=== PATIENT | male | born 1985 | race African-American/Black ===

== ENCOUNTER 2018-07-21 12:20 | Inpatient (IN) | payer OTHER ==
[2018-07-21 12:33] VITALS: BMI 30.9
--- NOTE | 2018-07-21 13:46 | HP ---
COWS - Scale Resting Pulse: 2= [place] 101-120 Sweatin= Chills/Flushing Restless Observation: 1= Difficult to Sit Still Pupil Size: 0= Normal to Room Light Bone or Joint Aches: 2= Severe Diffuse Aches Runny Nose/ Eye Tearin= Nasal Congestion GI Upset > 30mins: 1= Stomach Cramp Tremor Observation: 2= Slight Tremor Visible Yawning Observation: 1= 1-2x During Session Anxiety or Irritability: 1=Feels Anxious/Irritable Goose Flesh Skin: 3=Piloerection COWS Score: 15 CIWA Score - CIWA Score Nausea/Vomitin-Mild Nausea/No Vomiting Muscle Tremors: 4-Moderate,w/Arms Extend Anxiety: 4-Mod. Anxious/Guarded Agitation: 4-Moderately Restless Paroxysmal Sweats: 1-Minimal Palms Moist Orientation: 0-Oriented Tacttile Disturbances: 1-Very Mild Itch/Numbness Auditory Disturbances: 0-None Visual Disturbances: 0-None Headache: 0-None Present CIWA-Ar Total Score: 15 Admission [facility] - HPI Chief Complaint: alcohol and opioid withdrawal Allergies/Adverse Reactions: Allergies Allergy/AdvReac Type Severity Reaction Status Date / Time No Known Allergies Allergy Verified 07/21/18 13:37 History of Present Illness: 33 years old male with long history of alcohol and opiate and nicotine dependence, denies medical issue admitted feeling depressed and low energy recent months, unable to perform daily functioning, exhibited self destructive behavior by drinking and using opiate, patient denies current suicidal homocidal ideation "I have hope" Exam Limitations: No Limitations - Ebola screening Have you traveled outside of the country in the last 21 days: No Have you had contact with anyone from an Ebola affected area: No Have you been sick,other than usual withdrawal symptoms: No Do you have a fever: No - Review of Systems Constitutional: Changes in sleep, Weight Stable EENT: reports: No Symptoms Reported Respiratory: reports: No Symptoms reported Cardiac: reports: No Symptoms Reported GI: reports: Nausea, Poor Appetite, Poor Fluid Intake, Indigestion, Abdominal cramping : reports: No Symptoms Reported Musculoskeletal: reports: Back Pain, Joint Pain, Muscle Pain, Muscle Weakness, Neck Pain Integumentary: reports: Change in Color (left cubital) Neuro: reports: Tremors Endocrine: reports: No Symptoms Reported Hematology: reports: No Symptoms Reported Psychiatric: reports: Judgement Intact, Orientated x3, Anxious, Depressed Other Systems: Reviewed and Negative Patient History - Patient Medical History Hx Anemia: No Hx Asthma: No Hx Chronic Obstructive Pulmonary Disease (COPD): No Hx Cancer: No Hx Cardiac Disorders: No Hx Congestive Heart Failure: No Hx Hypertension: No Hx Hypercholesterolemia: No Hx Pacemaker: No HX Cerebrovascular Accident: No Hx Seizures: No Hx Dementia: No Hx Diabetes: No Hx Gastrointestinal Disorders: No Hx Liver Disease: No Hx Genitourinary Disorders: No Hx Sexually Transmitted Disorders: No Hx Renal Disease (ESRD): No Hx Thyroid Disease: No Hx Human Immunodeficiency Virus (HIV): No Hx Hepatitis C: No Hx Depression: Yes (ANXIETY, NO MED) Hx Suicide Attempt: No Hx Bipolar Disorder: No Hx Schizophrenia: No - Patient Surgical History Past Surgical History: No Hx Neurologic Surgery: No Hx Cataract Extraction: No Hx Cardiac Surgery: No Hx Lung Surgery: No Hx Breast Surgery: No Hx Breast Biopsy: No Hx Abdominal Surgery: No Hx Appendectomy: No Hx Cholecystectomy: No Hx Genitourinary Surgery: No Hx Section: No Hx Orthopedic Surgery: No Other Surgical History: MULTIPLE CUT ON BOTH HANDS, ABOUT 15 SUTURS ON LEFT FIFTH DISTAL FINGER Anesthesia Reaction: No - PPD History Date: 04/16/18 - Smoking Cessation Smoking history: Current every day smoker Have you smoked in the past 12 months: Yes Aproximately how many cigarettes per day: 6 Cigars Per Day: 0 Hx Chewing Tobacco Use: No Initiated information on smoking cessation: Yes 'Breaking Loose' booklet given: 07/21/18 - Substance & Tx. History Hx Alcohol Use: Yes Hx Substance Use: Yes Substance Use Type: Alcohol, Cocaine, Heroin, Opiates Hx Substance Use Treatment: Yes (03/2018 [facility] - Substances Abused Alcohol-vodka/beer Route: Oral Frequency: Daily Amount used: 2 pts./1-6 pk. Age of first use: 20 Date of Last Use: 07/21/18 Crystal meth Route: Smoking Frequency: Daily Amount used: $100 Age of first use: 28 Date of Last Use: 07/20/18 Crack Route: Smoking Frequency: Daily Amount used: $100 Age of first use: 22 Date of Last Use: 07/20/18 Family Disease History - Family Disease History Family Disease History: Other: Father (, lung cancer ), Mother (alive and well ) Admission Physical Exam [facility] - Vital Signs Vital Signs: Vital Signs - 24 hr 07/21/18 12:31 Temperature 96.5 F L Pulse Rate 105 H Respiratory 18 Rate Blood Pressure 128/78 - Physical General Appearance: Yes: Nourished, Appropriately Dressed, Mild Distress, Tremorous, Irritable, Sweating HEENTM: Yes: Hearing grossly Normal, Normocephalic, Normal Voice Respiratory: Yes: Chest Non-Tender, Lungs Clear, Normal Breath Sounds, No Respiratory Distress, No Accessory Muscle Use Neck: Yes: Supple, Trachea in good position Breast: Yes: Breasts Symetrical, No Discharge Cardiology: Yes: Regular Rhythm, S1, S2, Tachycardia Abdominal: Yes: Non Tender, Flat, Decreased BS Genitourinary: Yes: Within Normal Limits Back: Yes: Normal Inspection Musculoskeletal: Yes: full range of Motion, Gait Steady, Back pain, Joint Stiffness, Joint swelling, Muscle Pain Extremities: Yes: Normal Inspection, Normal Range of Motion, Non-Tender, Tremors , Swelling (lower legs) Neurological: Yes: Fully Oriented, Alert, Motor Strength 5/5, Normal Response, Depressed Affect Integumentary: Yes: Warm Lymphatic: Yes: Within Normal Limits - Diagnostic (1) Nicotine dependence Current Visit: Yes Status: Acute Qualifiers: Nicotine product type: cigarettes Substance use status: uncomplicated Qualified Code(s): F17.210 - Nicotine dependence, cigarettes, uncomplicated (2) Alcohol dependence with uncomplicated withdrawal Current Visit: Yes Status: Acute (3) Transgender Current Visit: No Status: Resolved Cleared for Admission [facility] - Detox or Rehab [facility] Level of Care: Medically Managed [facility] Breath Alcohol Content Breath Alcohol Content: 0 Urine Drug Screen - Control Is Test Valid: Yes - Results Drug Screen Negative: No Urine Drug Screen Results: THC-Marijuana, MARIBELL-Cocaine, AMP-Amphetamines, MET- Methamphetamine, BAR-Barbiturates
[2018-07-21] MEDS ORDERED: diazePAM 5 MG TABLET PO PRN (13:53)
[2018-07-21] MEDS ORDERED: IBUPROFEN 400 MG TABLET (FP) PO PRN (13:53)
[2018-07-21] MEDS ORDERED: LOPERAMIDE HCL 2 MG CAPSULE PO PRN (13:53)
[2018-07-21] MEDS ORDERED: MAGNESIUM HYDROX 2400MG/30ML ORAL SUSPENSION 30 ML CUP PO PRN (13:53)
[2018-07-21] MEDS ORDERED: ACETAMINOPHEN 325 MG TABLET (FP) PO PRN (13:53)
[2018-07-21] MEDS ORDERED: MAG HYDROX/AL HYDROX/SIMETH 30 ML UNIT-DOSE CUP PO PRN (13:53)
[2018-07-21] MEDS ORDERED: P-EPHED 60MG/TRIPROLIDI 2.5MG TABLET PO PRN (13:53)
[2018-07-21] MEDS ORDERED: NICOTINE POLACRILEX 4 MG GUM BUC PRN (13:53)
[2018-07-21] MEDS ORDERED: guaiFENesin/D-METHORPHAN HB 10 ML UNIT-DOSE CUPS PO PRN (13:53)
[2018-07-21] MEDS ORDERED: MENTHOL/PHENOL 1 EACH UD MM PRN (13:53)
[2018-07-21] MEDS ORDERED: MAGNESIUM CITRATE 300 ML BOTTLE PO PRN (13:53)
[2018-07-21] MEDS ORDERED: diazePAM 5 MG TABLET PO ONE (14:45)
[2018-07-21] MEDS ORDERED: METHADONE HCL 10 MG TABLET (FOR DETOX USE ONLY) PO ONE ×2 (14:45→23:00)
[2018-07-21] MEDS: NICOTINE 21 MG/24 HOURS TOPICAL PATCH TD SCH (16:36)
[2018-07-21 17:54] LABS: URINE APPEARANCE TURBID; URINE COLOR YELLOW; URINE GLUCOSE (UA) NEGATIVE (NEGATIVE); URINE KETONE 1+ (NEGATIVE); URINE LEUK ESTERASE NEGATIVE (NEGATIVE); URINE NITRITE NEGATIVE (NEGATIVE); URINE UROBILINOGEN 4.0 E.U/dl mg/dL (0.2-1.0)
[2018-07-21 17:59] LABS: URINE PROTEIN 1+ (NEGATIVE)
[2018-07-21 18:56] LABS: CALCIUM OXALATE CRYSTALS FEW /hpf (NONE SEEN); EPI CELLS RARE /HPF (FEW); URINE BACTERIA MANY /hpf (NONE SEEN); URINE MUCUS MANY
[2018-07-21] MEDS ORDERED: MELATONIN 5 MG TABLETS PO PRN (22:00)
[2018-07-21] MEDS: THIAMINE HCL 100 MG TABLET (FP) PO SCH (22:20)
[2018-07-21] MEDS: diazePAM 5 MG TABLET PO SCH (22:20)
[2018-07-22] MEDS: diazePAM 5 MG TABLET PO SCH ×3 (05:28→23:09)
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
[2018-07-22] MEDS ORDERED: METHADONE HCL 10 MG TABLET (FOR DETOX USE ONLY) PO SCH (10:00)
[2018-07-22 10:32] LABS: HEMATOCRIT 45.9 % (35.4-49); HEMOGLOBIN 15.1 GM/dL (11.7-16.9); MCH 30.5 pg (25.7-33.7); MCHC 32.8 g/dl (32.0-35.9); MEAN CELL VOLUME 92.7 fl (80-96); MEAN PLT VOLUME 9.7 fl (7.5-11.1); PLATELET COUNT 264 K/MM3 (134-434); RBC 4.95 M/mm3 (4.00-5.60); RDW 14.8 % (11.9-15.9); WHITE BLOOD COUNT 9.8 K/mm3 (4.0-10.0)
[2018-07-22] MEDS ORDERED: hydrOXYzine PAMOATE 50 MG CAPSULE (FP) PO PRN (10:36)
[2018-07-22 10:41] LABS: ALBUMIN 3.9 g/dl (3.4-5.0); ALK PHOS 61 U/L (45-117); ANION GAP 10 MMOL/L (8-16); BILIRUBIN,TOTAL 0.6 mg/dL (0.2-1); BLOOD UREA NITROGEN 10 mg/dL (7-18); CALCIUM 9.8 mg/dL (8.5-10.1); CHLORIDE 104 mmol/L (98-107); CO2 26 mmol/L (21-32); CREATININE 1.2 mg/dL (0.55-1.3); GLUCOSE,RANDOM 98 mg/dL (74-106); POTASSIUM 3.7 mmol/L (3.5-5.1); SGOT/AST 27 U/L (15-37); SGPT/ALT 21 U/L (13-61); SODIUM 140 mmol/L (136-145); TOT PROT 7.6 g/dl (6.4-8.2)
[2018-07-22] MEDS: NICOTINE 21 MG/24 HOURS TOPICAL PATCH TD SCH (10:53)
[2018-07-22] MEDS: PRENATAL VITAMINS W/ FOLIC ACID TABLET (FP) PO SCH (10:54)
--- NOTE | 2018-07-22 11:07 | EKG ---
Test Reason : Blood Pressure : / mmHG Vent. Rate : 063 BPM Atrial Rate : 063 BPM P-R Int : 156 ms QRS Dur : 088 ms QT Int : 400 ms P-R-T Axes : 012 051 044 degrees QTc Int : 409 ms NORMAL SINUS RHYTHM NORMAL ECG WHEN COMPARED WITH ECG OF 14-APR-2018 18:37, NO SIGNIFICANT CHANGE WAS FOUND Confirmed by Enrico Hamlin MD ([id number]) on 07/22/2018 11:07:04 AM Referred By: Confirmed By:Enrico Hamlin MD
--- NOTE | 2018-07-22 11:58 | PN ---
[facility] CIWA - CIWA Score Nausea/Vomitin-No Nausea/No Vomiting Muscle Tremors: 4-Moderate,w/Arms Extend Anxiety: 3 Agitation: 3 Paroxysmal Sweats: 3 Orientation: 0-Oriented Tacttile Disturbances: 0-None Auditory Disturbances: 0-None Visual Disturbances: 0-None Headache: 0-None Present CIWA-Ar Total Score: 13 BHS COWS - Scale Resting Pulse: 0= [place] 80 or Below Sweatin=Flushed/Facial Moisture Restless Observation: 1= Difficult to Sit Still Pupil Size: 0= Normal to Room Light Bone or Joint Aches: 2= Severe Diffuse Aches Runny Nose/ Eye Tearin= Nasal Congestion GI Upset > 30mins: 1= Stomach Cramp Tremor Observation of Outstretched Hands: 2= Slight Tremor Visible Yawning Observation: 0= None Anxiety or Irritability: 2=Irritable/Anxious Goose Flesh Skin: 0=Smooth Skin COWS Score: 11 S Progress Note (SOAP) Subjective: body aches sweats chills agitation interrupted sleep Objective: 07/22/18 11:57 Vital Signs Temperature 97.5 F L 07/22/18 09:15 Pulse Rate 73 07/22/18 09:15 Respiratory Rate 18 07/22/18 09:15 Blood Pressure 124/99 07/22/18 09:15 O2 Sat by Pulse Oximetry (%) Laboratory Tests 07/21/18 07/21/18 07/22/18 06:00 15:25 06:00 WBC 9.8 RBC 4.95 Hgb 15.1 Hct 45.9 D MCV 92.7 MCH 30.5 MCHC 32.8 RDW 14.8 Plt Count 264 D MPV 9.7 Sodium Potassium Chloride Carbon Dioxide Anion Gap BUN Creatinine Creat Clearance w eGFR Random Glucose Calcium Total Bilirubin AST ALT Alkaline Phosphatase Total Protein Albumin Urine Color Yellow Urine Appearance Turbid Urine pH 5.0 Ur Specific [place] 1.035 Urine Protein 1+ H Urine Glucose (UA) Negative Urine Ketones 1+ H Urine Blood Negative Urine Nitrite Negative Urine Bilirubin 2.0 Urine Urobilinogen 4.0 e.u/dl Ur Leukocyte Esterase Negative Urine WBC (Auto) 17 Urine RBC (Auto) 4 Ur Epithelial Cells Rare Calcium Oxalate Crystal Few Urine Bacteria Many Urine Mucus Many RPR Titer HIV 1&2 Antibody Screen Negative HIV P24 Antigen Negative 07/22/18 07/22/18 06:00 06:00 WBC RBC Hgb Hct MCV MCH MCHC RDW Plt Count MPV Sodium 140 Potassium 3.7 Chloride 104 Carbon Dioxide 26 Anion Gap 10 BUN 10 Creatinine 1.2 Creat Clearance w eGFR > 60 Random Glucose 98 Calcium 9.8 Total Bilirubin 0.6 AST 27 ALT 21 Alkaline Phosphatase 61 Total Protein 7.6 Albumin 3.9 Urine Color Urine Appearance Urine pH Ur Specific [place] Urine Protein Urine Glucose (UA) Urine Ketones Urine Blood Urine Nitrite Urine Bilirubin Urine Urobilinogen Ur Leukocyte Esterase Urine WBC (Auto) Urine RBC (Auto) Ur Epithelial Cells Calcium Oxalate Crystal Urine Bacteria Urine Mucus RPR Titer Nonreactive HIV 1&2 Antibody Screen HIV P24 Antigen aaox3 ambulating no acute distress Assessment: 07/22/18 11:57 withdrawal sx Plan: continue detox increase fluids
[2018-07-22] MEDS: THIAMINE HCL 100 MG TABLET (FP) PO SCH (23:09)
[2018-07-23] MEDS ORDERED: METHADONE HCL 5 MG TABLET (FOR DETOX USE ONLY) PO SCH (10:00)
[2018-07-23] MEDS: PRENATAL VITAMINS W/ FOLIC ACID TABLET (FP) PO SCH (10:21)
[2018-07-23] MEDS: diazePAM 5 MG TABLET PO SCH ×2 (10:21→22:34)
[2018-07-23] MEDS: NICOTINE 21 MG/24 HOURS TOPICAL PATCH TD SCH (10:21)
--- NOTE | 2018-07-23 11:29 | PN ---
[facility] CIWA - CIWA Score Nausea/Vomitin-No Nausea/No Vomiting Muscle Tremors: 3 Anxiety: 3 Agitation: 3 Paroxysmal Sweats: 2 Orientation: 0-Oriented Tacttile Disturbances: 0-None Auditory Disturbances: 0-None Visual Disturbances: 0-None Headache: 0-None Present CIWA-Ar Total Score: 11 BHS COWS - Scale Resting Pulse: 0= [place] 80 or Below Sweatin= Chills/Flushing Restless Observation: 0= Sits Still Pupil Size: 0= Normal to Room Light Bone or Joint Aches: 2= Severe Diffuse Aches Runny Nose/ Eye Tearin= Nasal Congestion GI Upset > 30mins: 0= None Tremor Observation of Outstretched Hands: 2= Slight Tremor Visible Yawning Observation: 2= >3x During Session Anxiety or Irritability: 2=Irritable/Anxious Goose Flesh Skin: 0=Smooth Skin COWS Score: 10 S Progress Note (SOAP) Subjective: sweats interrupted sleep body aches tired Objective: 07/23/18 11:26 Vital Signs Temperature 97.9 F 07/23/18 09:13 Pulse Rate 80 07/23/18 09:13 Respiratory Rate 16 07/23/18 09:13 Blood Pressure 118/61 07/23/18 09:13 O2 Sat by Pulse Oximetry (%) Laboratory Tests 07/21/18 07/21/18 07/22/18 06:00 15:25 06:00 WBC 9.8 RBC 4.95 Hgb 15.1 Hct 45.9 D MCV 92.7 MCH 30.5 MCHC 32.8 RDW 14.8 Plt Count 264 D MPV 9.7 Sodium Potassium Chloride Carbon Dioxide Anion Gap BUN Creatinine Creat Clearance w eGFR Random Glucose Calcium Total Bilirubin AST ALT Alkaline Phosphatase Total Protein Albumin Urine Color Yellow Urine Appearance Turbid Urine pH 5.0 Ur Specific [place] 1.035 Urine Protein 1+ H Urine Glucose (UA) Negative Urine Ketones 1+ H Urine Blood Negative Urine Nitrite Negative Urine Bilirubin 2.0 Urine Urobilinogen 4.0 e.u/dl Ur Leukocyte Esterase Negative Urine WBC (Auto) 17 Urine RBC (Auto) 4 Ur Epithelial Cells Rare Calcium Oxalate Crystal Few Urine Bacteria Many Urine Mucus Many RPR Titer HIV 1&2 Antibody Screen Negative HIV P24 Antigen Negative 07/22/18 07/22/18 06:00 06:00 WBC RBC Hgb Hct MCV MCH MCHC RDW Plt Count MPV Sodium 140 Potassium 3.7 Chloride 104 Carbon Dioxide 26 Anion Gap 10 BUN 10 Creatinine 1.2 Creat Clearance w eGFR > 60 Random Glucose 98 Calcium 9.8 Total Bilirubin 0.6 AST 27 ALT 21 Alkaline Phosphatase 61 Total Protein 7.6 Albumin 3.9 Urine Color Urine Appearance Urine pH Ur Specific [place] Urine Protein Urine Glucose (UA) Urine Ketones Urine Blood Urine Nitrite Urine Bilirubin Urine Urobilinogen Ur Leukocyte Esterase Urine WBC (Auto) Urine RBC (Auto) Ur Epithelial Cells Calcium Oxalate Crystal Urine Bacteria Urine Mucus RPR Titer Nonreactive HIV 1&2 Antibody Screen HIV P24 Antigen aaox3 ambulating no acute distress Assessment: 07/23/18 11:47 mild withdrawal sx Plan: continue detox increase fluids
[2018-07-23] MEDS: THIAMINE HCL 100 MG TABLET (FP) PO SCH (22:34)
--- NOTE | 2018-07-24 09:55 | PN ---
S Progress Note Note: c/o of fatigue and interrupted sleep Vital Signs Temperature 97.7 F 07/24/18 06:50 Pulse Rate 62 07/24/18 06:50 Respiratory Rate 18 07/24/18 06:50 Blood Pressure 120/58 L 07/24/18 06:50 O2 Sat by Pulse Oximetry (%) Laboratory Last Values WBC 9.8 K/mm3 (4.0-10.0) 07/22/18 06:00 RBC 4.95 M/mm3 (4.00-5.60) 07/22/18 06:00 Hgb 15.1 GM/dL (11.7-16.9) 07/22/18 06:00 Hct 45.9 % (35.4-49) D 07/22/18 06:00 MCV 92.7 fl (80-96) 07/22/18 06:00 MCH 30.5 pg (25.7-33.7) 07/22/18 06:00 MCHC 32.8 g/dl (32.0-35.9) 07/22/18 06:00 RDW 14.8 % (11.9-15.9) 07/22/18 06:00 Plt Count 264 K/MM3 (134-434) D 07/22/18 06:00 MPV 9.7 fl (7.5-11.1) 07/22/18 06:00 Sodium 140 mmol/L (136-145) 07/22/18 06:00 Potassium 3.7 mmol/L (3.5-5.1) 07/22/18 06:00 Chloride 104 mmol/L (98-107) 07/22/18 06:00 Carbon Dioxide 26 mmol/L (21-32) 07/22/18 06:00 Anion Gap 10 MMOL/L (8-16) 07/22/18 06:00 BUN 10 mg/dL (7-18) 07/22/18 06:00 Creatinine 1.2 mg/dL (0.55-1.3) 07/22/18 06:00 Creat Clearance w eGFR > 60 (>60) 07/22/18 06:00 Random Glucose 98 mg/dL (74-106) 07/22/18 06:00 Calcium 9.8 mg/dL (8.5-10.1) 07/22/18 06:00 Total Bilirubin 0.6 mg/dL (0.2-1) 07/22/18 06:00 AST 27 U/L (15-37) 07/22/18 06:00 ALT 21 U/L (13-61) 07/22/18 06:00 Alkaline Phosphatase 61 U/L (45-117) 07/22/18 06:00 Total Protein 7.6 g/dl (6.4-8.2) 07/22/18 06:00 Albumin 3.9 g/dl (3.4-5.0) 07/22/18 06:00 Urine Color Yellow 07/21/18 15:25 Urine Appearance Turbid 07/21/18 15:25 Urine pH 5.0 (5.0-8.0) 07/21/18 15:25 Ur Specific [place] 1.035 (1.001-1.035) 07/21/18 15:25 Urine Protein 1+ (NEGATIVE) H 07/21/18 15:25 Urine Glucose (UA) Negative (NEGATIVE) 07/21/18 15:25 Urine Ketones 1+ (NEGATIVE) H 07/21/18 15:25 Urine Blood Negative (NEGATIVE) 07/21/18 15:25 Urine Nitrite Negative (NEGATIVE) 07/21/18 15:25 Urine Bilirubin 2.0 (<2.0 mg/dL) 07/21/18 15:25 Urine Urobilinogen 4.0 e.u/dl mg/dL (0.2-1.0) 07/21/18 15:25 Ur Leukocyte Esterase Negative (NEGATIVE) 07/21/18 15:25 Urine WBC (Auto) 17 /hpf (3-5) 07/21/18 15:25 Urine RBC (Auto) 4 /hpf (0-3) 07/21/18 15:25 Ur Epithelial Cells Rare /HPF (FEW) 07/21/18 15:25 Calcium Oxalate Crystal Few /hpf (NONE SEEN) 07/21/18 15:25 Urine Bacteria Many /hpf (NONE SEEN) 07/21/18 15:25 Urine Mucus Many 07/21/18 15:25 RPR Titer Nonreactive (NONREACTIVE) 07/22/18 06:00 HIV 1&2 Antibody Screen Negative 07/21/18 06:00 HIV P24 Antigen Negative 07/21/18 06:00 Aox3 no distress no adventitious breath sounds full ROM, ambulating in the unit withdrawal sx increase PO fluids continue detox continue to monitor
[2018-07-24] MEDS: diazePAM 5 MG TABLET PO SCH ×2 (10:38→22:42)
[2018-07-24] MEDS: PRENATAL VITAMINS W/ FOLIC ACID TABLET (FP) PO SCH (10:38)
[2018-07-24] MEDS: NICOTINE 21 MG/24 HOURS TOPICAL PATCH TD SCH (10:38)
[2018-07-24] MEDS: THIAMINE HCL 100 MG TABLET (FP) PO SCH (22:42)
[2018-07-25 09:34] VITALS: BP 118/72; PULSE 92; TEMP 97.7
[2018-07-25] MEDS ORDERED: diazePAM 5 MG TABLET PO SCH (10:00)
[2018-07-25] MEDS ORDERED: METHADONE HCL 10 MG TABLET (FOR DETOX USE ONLY) PO SCH (10:00)
[2018-07-25] MEDS: NICOTINE 21 MG/24 HOURS TOPICAL PATCH TD SCH (11:09)
[2018-07-25] MEDS: PRENATAL VITAMINS W/ FOLIC ACID TABLET (FP) PO SCH (11:09)
--- NOTE | 2018-07-25 13:51 | DS ---
[facility] Detox Discharge Summary Admission Date: 07/21/18 - History Present History: Alcohol Dependence - Physical Exam Results Vital Signs: Vital Signs Temperature 97.7 F 07/25/18 09:33 Pulse Rate 92 H 07/25/18 09:33 Respiratory Rate 18 07/25/18 09:33 Blood Pressure 118/72 07/25/18 09:33 O2 Sat by Pulse Oximetry (%) Pertinent Admission Physical Exam Findings: PATIENT TOLERATED DETOX WELL. CLINICALLY STABLE. DISCHARGED TO [facility] TODAY. NO SI/HI REPORTED. PATIENT ENCOURAGED TO COMPLETE REHAB TO PREVENT RELAPSE. D/C INSTRUCTIONS PROVIDED TO PATIENT BY STAFF. - Treatment Hospital Course: Detox Protocol Followed, Detoxed Safely, Responded well, Discharged Condition Good, Rehab Referral Accepted Patient has Accepted a Rehab Referral to: [facility] - Medication Discharge Medications: Ambulatory Orders NK [No Known Home Medication] 04/25/16 - Diagnosis (1) Alcohol dependence with uncomplicated withdrawal Status: Acute - AMA Did Patient Leave Against Medical Advice: No
[2018-07-26] MEDS ORDERED: METHADONE HCL 5 MG TABLET (FOR DETOX USE ONLY) PO SCH (06:00)
== END 2018-07-25 11:08 | disposition home or self-care (01) | DRG 774 ==
LOC: YASAS 12:20 → Y6N 14:37
PROC: HZ2ZZZZ Detoxification Services for Substance Abuse Treatment (ICD-10-PCS; principal; 2018-07-21)
DX: F10.230 Alcohol dependence with withdrawal, uncomplicated (principal); F15.20 Other stimulant dependence, uncomplicated; F14.20 Cocaine dependence, uncomplicated; F12.20 Cannabis dependence, uncomplicated; F17.210 Nicotine dependence, cigarettes, uncomplicated; F43.10 Post-traumatic stress disorder, unspecified; R00.0 Tachycardia, unspecified; F64.1 Dual role transvestism; Z87.890 Personal history of sex reassignment
CPT/HCPCS: 36415; 80053; 81003; 81015; 85027; 86593; 87389; 93005; 93010